=== PATIENT | female | born 1980 | race Caucasian/White ===

== ENCOUNTER → 2020-03-01 | Outpatient (CLI) | payer SELFPAY ==
[~2020-03-01] MED LIST: DOCU100 PO; KETO10 PO; OXYACE5T PO; PROM25 PO; Verotin-Gr Cap1 EACH PO; Zofran Odt4 MG SL
[2020-03-02 21:11] LABS: CHLAMYDIA TRACHOMATIS, NAA Negative (Negative); NEISSERIA GONORRHOEAE, NAA Negative (Negative)
== END | disposition home or self-care (01) ==
LOC: LAB 12:07 → LAB SHORT 12:07
PROVIDERS: Advanced Practice Midwife
DX: Z11.3 Encounter for screening for infections with a predominantly sexual mode of transmission (principal)
CPT/HCPCS: 87491; 87591

== ENCOUNTER → 2024-02-25 | Outpatient (CLI) | payer BC | END | disposition home or self-care (01) | LOC: LAB 10:37 → LAB SHORT 10:37 | DX: M25.572 Pain in left ankle and joints of left foot (principal) | CPT/HCPCS: 84550 ==